=== PATIENT | male | born 1940 | race Caucasian/White ===

== ENCOUNTER → 2018-02-01 | Outpatient (CLI) | payer MEDICARE, OTHER | END | disposition home or self-care (01) | LOC: C/S 09:42 | DX: R05 Cough (principal); J32.9 Chronic sinusitis, unspecified | CPT/HCPCS: 70486; 71250 ==

== ENCOUNTER → 2019-02-21 | Outpatient (CLI) | payer MEDICARE, OTHER | END | disposition home or self-care (01) | LOC: VAS 12:02 | DX: R60.9 Edema, unspecified (principal) | CPT/HCPCS: 93970 ==